=== PATIENT | female | born 1980 | race Two or more races ===

== ENCOUNTER 2020-12-05 23:27 | Emergency (ER) | payer OTHER ==
[~2020-12-05] VITALS: Ht 152.4 cm; Wt 174.6 kg
[2020-12-06] MEDS ORDERED: ULTRACET PO (00:22)
[2020-12-06] MEDS ORDERED: ONDANSETRON HCL4 MG PO (00:22)
== END 2020-12-06 00:32 | disposition home or self-care (01) ==
LOC: ER 23:27 → EDBD 23:57 → ER 12-06 00:32
DX: R10.30 Lower abdominal pain, unspecified (principal); R19.09 Other intra-abdominal and pelvic swelling, mass and lump

== ENCOUNTER 2020-12-07 13:33 | Inpatient (IN) | payer OTHER ==
[~2020-12-07] VITALS: Ht 170.2 cm; Wt 174.6 kg
[~2020-12-07 13:33] MED LIST: ONDANSETRON HCL4 MG PO; ULTRACET PO
[2020-12-08] MEDS ORDERED: DEXAMETHASONE4 MG (08:22)
[2020-12-08] MEDS ORDERED: NORFLEX100MG (08:22)
[2020-12-08] MEDS ORDERED: GABAPENTIN100 M2 (08:22)
== END 2020-12-09 12:13 | disposition home or self-care (01) | DRG 761 ==
LOC: OB/GYN 13:33
PROVIDERS: ADMIT Student in an Organized Health Care Education/Training Program; ATTEND Student in an Organized Health Care Education/Training Program
PROC: BW40ZZZ Ultrasonography of Abdomen (ICD-10-PCS; principal; 2020-12-07)
PROC: BW4GZZZ Ultrasonography of Pelvic Region (ICD-10-PCS; 2020-12-07)
DX: N83.292 Other ovarian cyst, left side (principal); E66.01 Morbid (severe) obesity due to excess calories

== ENCOUNTER 2022-11-04 06:41 | Day surgery (SDC) | payer OTHER ==
[~2022-11-04] VITALS: Ht 170.2 cm; Wt 172.4 kg
[~2022-11-04 06:41] MED LIST changes: +COZAAR25 MG PO; +DEXAMETHASONE4 MG; +GABAPENTIN100 M2; +NORFLEX100MG
== END 2022-11-04 19:50 | disposition home or self-care (01) ==
LOC: CIR.AMB 06:41
PROVIDERS: ATTEND Surgery
DX: C50.212 Malignant neoplasm of upper-inner quadrant of left female breast (principal); R59.0 Localized enlarged lymph nodes; R92.0 Mammographic microcalcification found on diagnostic imaging of breast; Z88.6 Allergy status to analgesic agent; I10 Essential (primary) hypertension; Z86.16 Personal history of COVID-19; R73.03 Prediabetes
CPT/HCPCS: 19301; 38525; 19081; A9541